=== PATIENT | male | born 1955 | race Caucasian/White ===

== ENCOUNTER → 2020-06-14 | Outpatient (CLI) | payer OTHER ==
[~2020-06-14] MED LIST: CEPH500 PO; CYCL10 PO; DIAZ5 PO; DOXY100 PO; HYDACE5 PO; HYDACE5325 PO; HYDMOR2 PO; HYDPAM50 PO; HYDR1TAB94 PO; OXYACE5T PO; OXYACE7.5T PO; OXYC5 PO; PRED20 PO; PROM25 PO; Percocet 5-3251 EACH PO; SULI150 PO; SULTRIDS PO; TRAM50 PO; [UNRECOGNIZED DRUG - REMARK]
== END ==
LOC: LAB 12:00 → LAB SHORT 12:00
DX: Z08 Encounter for follow-up examination after completed treatment for malignant neoplasm (principal); L08.9 Local infection of the skin and subcutaneous tissue, unspecified; Z85.820 Personal history of malignant melanoma of skin
CPT/HCPCS: 87070; 87205